=== PATIENT | female | born 1955 | race Caucasian/White ===

== ENCOUNTER 2018-11-21 23:44 | Inpatient (IN) | payer MEDICARE, MEDICAID ==
[~2018-11-21] VITALS: Ht 154.9 cm; Wt 59.0 kg
[2018-11-21] MEDS ORDERED: NALOXONE 4 MG in SODIUM CHLORIDE 0.9% 1,000 ML IV SCH (23:45)
[2018-11-21] MEDS ORDERED: SODIUM CHLORIDE 0.9% 1,000 ML IV ONE (23:46)
[2018-11-22] MEDS ORDERED: ONDANSETRON 2MG/ML, 2ML IVPush ONE
[2018-11-22] MEDS ORDERED: NALOXONE 0.4 MG/ML, 1ML IVPush PRN
--- NOTE | 2018-11-22 00:02 | NUR ---
ADMITTING MD AT BEDSIDE
[2018-11-22] MEDS ORDERED: OXYC20TA2 PO (00:09)
[2018-11-22] MEDS ORDERED: GABA800T5 PO (00:09)
[2018-11-22] MEDS ORDERED: FENTANYL PATCH (00:09)
--- NOTE | 2018-11-22 00:15 | NUR ---
PT DENIES THIS BEING A SUICIDE ATTEMPT. PT STATES SHE DOES NOT REMEMBER PLACING THE FENTANYL PATCH IN HER MOUTH. PTS GRAND DAUGHTERS NOW AT BEDSIDE. POC DISCUSSED. PT AND FAMILY DENY CURRENT NEEDS. BED RAILS UPX2. CALL LIGHT ON LAP.
[2018-11-22 00:30] LABS: ALBUMIN 3.8 g/dL (3.4-5.0); ANION GAP 5 mmol/L (5-15); CALCIUM 8.3 mg/dL (8.5-10.1); CHLORIDE 108 mmol/L (98-107)
--- NOTE | 2018-11-22 00:30 | NUR ---
PT RESPONSIVE TO VERBAL STIMULI. PT DENIES COMPLAINTS. POC DISCUSSED. PT REMAINS ON ALL MONITORING.
[2018-11-22 00:33] LABS: ALANINE AMINOTRANSFERASE 19 U/L (12-78); ALKALINE PHOSPHATASE 96 U/L (45-117); BILIRUBIN,TOTAL 0.3 mg/dL (0.2-1.0); TOTAL PROTEIN 7.4 g/dL (6.4-8.2)
[2018-11-22 00:35] LABS: SALICYLATE LEVEL < 1.7 mg/dL (2.8-20.0)
[2018-11-22 00:42] LABS: BASOPHILS % (AUTO) 1 % (0-1); EOSINOPHILS # (AUTO) 0.21 x10^3/uL (0-0.4); EOSINOPHILS % (AUTO) 2 % (1-7); LYMPHOCYTES # (AUTO) 3.25 x10^3/uL (1-3.4); LYMPHOCYTES % (AUTO) 37 % (22-44); MD SCAN; MEAN CORPUSCULAR HEMOGLOBIN 30.3 pg (27.0-34.8); MEAN CORPUSCULAR HGB CONC 31.4 g/dL (32.4-35.8); MEAN CORPUSCULAR VOLUME 96.4 fL (80-100); MONOCYTES # (AUTO) 0.63 x10^3/uL (0.2-0.8); MONOCYTES % (AUTO) 7 % (2-9); NEUTROPHILS # (AUTO) 4.53 x10^3/uL (1.8-6.8); NEUTROPHILS % (AUTO) 52 % (42-75); PLATELET COUNT 341 x10^3/uL (130-400); RED BLOOD COUNT 4.31 x10^6/uL (3.82-5.3); RED CELL DISTRIBUTION WIDTH 14.6 % (9.6-15.2)
[2018-11-22] MEDS ORDERED: ONDANSETRON 2MG/ML, 2ML ONE (00:43)
--- NOTE | 2018-11-22 00:45 | NUR ---
PER [facility] PT IS A [facility] PATIENT. [facility] MD NOW AT BEDSIDE.
[2018-11-22] MEDS ORDERED: SODIUM CHLORIDE 0.9% 1,000 ML IV SCH (01:10)
--- NOTE | 2018-11-22 01:10 | NUR ---
PT NOW AGITATED AND MOANING. THIS RN AND [facility] DOCTOR AT BEDSIDE. [facility] DOC STATES TO HOLD NARCAN DRIP AT THIS TIME. DRIP STOPPED. PLAN IS TO MONITOR PT WITH DRIP STOPPED AND REEVALUATE. PT REMAINS ON ALL MONITORING.
[2018-11-22] MEDS ORDERED: ENALAPRILAT 1.25 MG/ML, 2ML IVPush PRN (01:30)
[2018-11-22] MEDS ORDERED: LABETALOL 5MG/ML, 20ML IVPush PRN (01:30)
[2018-11-22] MEDS ORDERED: hydrALAzine 20 MG/ML, 1ML IVPush PRN (01:30)
[2018-11-22] MEDS ORDERED: ONDANSETRON 2MG/ML, 2ML IVPush PRN (01:30)
[2018-11-22] MEDS ORDERED: VENL75TA PO (01:36)
[2018-11-22] MEDS ORDERED: DULO30CA2 PO (01:36)
[2018-11-22] MEDS ORDERED: HEPARIN 5,000 UNITS/ML, 1ML ONE (01:43)
[2018-11-22] MEDS: HEPARIN 5,000 UNITS/ML, 1ML SQ SCH ×2 (01:48→10:15)
--- NOTE | 2018-11-22 02:02 | NUR ---
SINCE STOPPING THE NARCAN PT HAS BEEN CALM AND COOPERATIVE. STRAIGHT CATH PERFORMED WITH ASSISTANCE OF DARLINE GASPAR. SAMPLE WALKED TO LAB.
[2018-11-22 02:06] LABS: MICROSCOPIC NOT IND
[2018-11-22 02:10] LABS: CULTURE INDICATED? NO
[2018-11-22 02:26] LABS: AMPHETAMINE SCREEN, URINE Negative (Negative); BARBITURATE SCREEN, URINE Negative (Negative); BENZODIAZEPINE SCREEN, URINE Negative (Negative); CANNABINOID SCREEN, URINE Negative (Negative); COCAINE SCREEN, URINE Negative (Negative); METHADONE SCREEN, URINE Negative (Negative); OPIATE SCREEN, URINE Positive (Negative)
[2018-11-22 03:00] VITALS: BP 140/68
[2018-11-22 04:14] LABS: BASOPHILS # (AUTO) 0.05 x10^3/uL (0-0.1); BASOPHILS % (AUTO) 1 % (0-1); EOSINOPHILS % (AUTO) 1 % (1-7); LYMPHOCYTES # (AUTO) 1.81 x10^3/uL (1-3.4); LYMPHOCYTES % (AUTO) 21 % (22-44); MD NO; MEAN CORPUSCULAR HGB CONC 32.1 g/dL (32.4-35.8); MEAN CORPUSCULAR VOLUME 96.6 fL (80-100); MEAN PLATELET VOLUME 8.8 fL (7.4-10.4); MONOCYTES # (AUTO) 0.37 x10^3/uL (0.2-0.8); MONOCYTES % (AUTO) 4 % (2-9); NEUTROPHILS # (AUTO) 6.32 x10^3/uL (1.8-6.8); NEUTROPHILS % (AUTO) 73 % (42-75); PLATELET COUNT 346 x10^3/uL (130-400); RED BLOOD COUNT 3.87 x10^6/uL (3.82-5.3); RED CELL DISTRIBUTION WIDTH 14.5 % (9.6-15.2)
[2018-11-22 04:27] LABS: ALANINE AMINOTRANSFERASE 15 U/L (12-78); ALBUMIN 3.2 g/dL (3.4-5.0); ANION GAP 8 mmol/L (5-15); CALCIUM 7.6 mg/dL (8.5-10.1); CHLORIDE 110 mmol/L (98-107); CREATININE 0.59 mg/dL (0.55-1.02)
[2018-11-22 04:29] LABS: ALKALINE PHOSPHATASE 82 U/L (45-117); BILIRUBIN,TOTAL 0.4 mg/dL (0.2-1.0); TOTAL PROTEIN 5.9 g/dL (6.4-8.2)
[2018-11-22 05:35] VITALS: BP 147/76
[2018-11-22] MEDS ORDERED: OXYcodone/APAP 10/325MG TABLET PO ONE (05:45)
[2018-11-22 07:02] VITALS: BP 156/74
[2018-11-22] MEDS: OXYcodone IR 30 MG TABLET PO SCH ×2 (10:14→14:07)
[2018-11-22 14:17] VITALS: BP 151/92
[2018-11-22] MEDS ORDERED: FENTANYL 50 MCG PATCH TD SCH (16:00)
== END 2018-11-22 17:39 | disposition home or self-care (01) | DRG 917 ==
LOC: ED 11-22 00:22 → EDIP 11-22 00:48 → 5SO 11-22 02:44
PROVIDERS: ADMIT Internal Medicine; ATTEND Internal Medicine
PROC: 0T9B70Z Drainage of Bladder with Drainage Device, Via Natural or Artificial Opening (ICD-10-PCS; principal; 2018-11-22)
DX: T40.2X1A Poisoning by other opioids, accidental (unintentional), initial encounter (principal); J96.01 Acute respiratory failure with hypoxia; G92 Toxic encephalopathy; I25.10 Atherosclerotic heart disease of native coronary artery without angina pectoris; I10 Essential (primary) hypertension; G89.29 Other chronic pain; F17.200 Nicotine dependence, unspecified, uncomplicated; Z95.1 Presence of aortocoronary bypass graft; Y92.89 Other specified places as the place of occurrence of the external cause
CPT/HCPCS: 36415; 71045; 80053; 80307; 81003; 83735; 85025; 93005; G0378; J1644; J2310; J7030